=== PATIENT | female | born 1965 | race Caucasian/White ===

== ENCOUNTER 2016-12-11 08:46 | Outpatient (CLI) | payer OTHER ==
--- NOTE | 2016-12-11 09:48 | CT ---
CT CERVICAL SPINE WITHOUT CONTRAST: Date: 12/11/16 INDICATION: Neck pain after a fall. COMPARISON: None. FINDINGS: Craniocervical junction is normal appearing. There is a posterior midline fusion defect involving C1 . There is mild facet joint degenerative change at C2-3, C3-4, C4-5, C5-6, and C6-7. There are mild br oad based disc osteophyte complexes at C5-6 and C6-7. There is uncovertebral hypertrophy that is greater on the right at C5-6 causing mild right neural fo raminal narrowing. At C6-7, there is a broad based disc bulge with uncovertebral hypertrophy inducting moderate right a nd mild left neural foraminal narrowing. IMPRESSION: 1. No acute fracture or subluxation demonstrated. 2. Mild spondylosis of the cervical spine, most pronounced at C5-6 and C6-7. POS: [facility]
== END 2016-12-11 08:47 | disposition home or self-care (01) ==
LOC: CT 08:46
PROVIDERS: ATTEND Neurological Surgery
DX: M54.2 Cervicalgia (principal); M47.812 Spondylosis without myelopathy or radiculopathy, cervical region
CPT/HCPCS: 72125

== ENCOUNTER 2017-09-03 09:00 | Outpatient (CLI) | payer OTHER | END 2017-09-03 09:01 | disposition home or self-care (01) | LOC: BICMAMMO 09:00 | PROVIDERS: ATTEND Specialist | DX: Z12.31 Encounter for screening mammogram for malignant neoplasm of breast (principal) | CPT/HCPCS: 77063; 77067 ==

== ENCOUNTER 2018-01-01 10:53 | Outpatient (CLI) | payer OTHER ==
--- NOTE | 2018-01-01 12:39 | RAD ---
RIGHT SHOULDER THREE VIEWS: 01/01/2018 HISTORY: Right shoulder pain. Limited range of motion. COMPARISON: None. FINDINGS: There is no widening of the acromioclavicular or coracoclavicular interspace. There is no displaced fracture or evidence of dislocation seen. IMPRESSION: No acute osseous abnormality. POS: [facility]
== END 2018-01-01 10:54 | disposition home or self-care (01) ==
LOC: BICRAD 10:53
PROVIDERS: ATTEND Specialist
DX: M25.511 Pain in right shoulder (principal)

== ENCOUNTER 2018-08-13 10:54 | Outpatient (CLI) | payer OTHER ==
--- NOTE | 2018-08-13 11:17 | RAD ---
XR Hand Lt 3 View STANDARD HISTORY: Left hand pain COMPARISON: None. FINDINGS: Bony mineralization appears normal. Joint spaces are well preserved. I do not see any evide nce of any bony erosive change. Ulnar styloid is normal in appearance. IMPRESSION: Unremarkable left hand.
--- NOTE | 2018-08-13 11:18 | RAD ---
EXAM: 3 views of the left wrist HISTORY: Wrist pain COMPARISON: None FINDINGS: 3 views of the left wrist shows no evidence of acute fracture or dislocation. No soft tissu e swelling is seen. No degenerative changes are present. IMPRESSION: No evidence of acute osseous abnormality.
--- NOTE | 2018-08-13 11:18 | RAD ---
EXAM: 3 views of the right wrist HISTORY: Wrist pain COMPARISON: None FINDINGS: 3 views of the right wrist shows no evidence of acute fracture or dislocation. No soft tiss ue swelling is seen. No degenerative changes are present. IMPRESSION: No evidence of acute osseous abnormality.
--- NOTE | 2018-08-13 11:19 | RAD ---
XR Hand Rt 3 View STANDARD HISTORY: Right hand pain COMPARISON: None. FINDINGS: Bony mineralization is normal. There are some osteoarthritic changes of the PIP joints of t he index and middle fingers. No erosive bony change or other findings. IMPRESSION: Mild arthritic change. Changes mainly related to the PIP joints of the index and middle f wanda
== END 2018-08-13 10:55 | disposition home or self-care (01) ==
LOC: BICRAD 10:54
PROVIDERS: ATTEND Internal Medicine Rheumatology
DX: M25.541 Pain in joints of right hand (principal); M25.542 Pain in joints of left hand; M19.041 Primary osteoarthritis, right hand

== ENCOUNTER 2018-09-10 12:25 | Outpatient (CLI) | payer OTHER ==
--- NOTE | 2018-09-10 15:18 | MMO ---
Bilateral MAMMO Bilat Screen [id number]. CLINICAL HISTORY: Patient is 53 years old and is seen for screening. The patient has no family history of breast cancer. The patient has no personal history of cancer. VIEWS: The views performed were: bilateral craniocaudal with tomosynthesis and bilateral mediolateral oblique with tomosynthesis. FILMS COMPARED: The present examination has been compared to a prior imaging study performed at [facility] on 09/03/2017. MAMMOGRAM FINDINGS: There are scattered fibroglandular densities. Benign calcifications are noted bilaterally. There are no suspicious masses, suspicious calcifications, or new areas of architectural distortion. IMPRESSION: THERE IS NO MAMMOGRAPHIC EVIDENCE OF MALIGNANCY. A ROUTINE FOLLOW-UP MAMMOGRAM IN 1 YEAR IS RECOMMENDED. THE RESULTS OF THIS EXAM WERE SENT TO THE PATIENT. ACR BI-RADS Category 2 - Benign finding MAMMOGRAPHY NOTE: 1. A negative mammogram report should not delay a biopsy if a dominant of clinically suspicious mass is present. 2. Approximately 10% to 15% of breast cancers are not detected by mammography. 3. Adenosis and dense breasts may obscure an underlying neoplasm. Reported by: TALIB DE DIOS MD Electonically Signed: [id number]
== END 2018-09-10 12:26 | disposition home or self-care (01) ==
LOC: BICMAMMO 12:25
PROVIDERS: ATTEND Specialist
DX: Z12.31 Encounter for screening mammogram for malignant neoplasm of breast (principal)
CPT/HCPCS: 77063; 77067

== ENCOUNTER 2021-07-10 08:25 | Outpatient (CLI) | payer BC | END 2021-07-10 08:26 | disposition home or self-care (01) | LOC: BICMRI 08:25 | PROVIDERS: ATTEND Nurse Practitioner Family | DX: M54.2 Cervicalgia (principal); R25.2 Cramp and spasm; M50.30 Other cervical disc degeneration, unspecified cervical region | CPT/HCPCS: 72141 ==

== ENCOUNTER 2021-07-26 10:07 | Outpatient (CLI) | payer BC | END 2021-07-26 10:08 | disposition home or self-care (01) | LOC: BICMAMMO 10:07 | PROVIDERS: ATTEND Specialist | DX: Z12.31 Encounter for screening mammogram for malignant neoplasm of breast (principal); M81.0 Age-related osteoporosis without current pathological fracture | CPT/HCPCS: 77063; 77067; 77080 ==

== ENCOUNTER 2023-04-10 18:57 | Emergency (ER) | payer BC ==
[~2023-04-10 18:57] MED LIST: Iopamidol-370 76% 500 ML MDV (1 ML CHARGE) ONE
[2023-04-10 19:53] LABS: #Eosinphils 0.1 thou/uL (0.0-0.7); #Monocytes 0.8 thou/uL (0.11-0.59); %Basophils 0.2 % (0.0-1.0); %Eosinophils 1.2 % (0.0-10.0); %Lymphocytes 16.1 % (21.0-51.0); %Neutrophils 72.1 % (42.0-75.0); Hematocrit 40.3 % (36.0-47.0); Hemoglobin 13.8 g/dL (12.0-16.0); Mean Corpuscular HGB CONC 34.2 g/dL (32.0-36.0); Mean Corpuscular Hemoglobin 31.6 pg (27.0-31.0); Mean Corpuscular Volume 92.2 fl (78.0-98.0); Mean Platelet Volume 9.1 fL (7.4-10.4); Platelet Count 217 10x3/uL (130-400); RBC Distribution Width 11.5 % (11.5-14.5); Red Blood Cell (RBC) Count 4.37 mill/uL (4.20-5.40); White Blood Cell (WBC) Count 8.3 10x3/uL (4.8-10.8)
[2023-04-10 20:23] LABS: ALT (SGPT) 11 U/L (8-55); AST (SGOT) 10 U/L (5-34); Albumin 4.3 g/dL (3.5-5.0); Alkaline Phosphatase 40 U/L (40-110); Anion Gap 12 mmol/L (10-20); BUN (Urea Nitrogen) 12 mg/dL (9.8-20.1); Bilirubin, Total 0.3 mg/dL (0.2-1.2); Calc. Creatinine Clearance 0 mL/min (70-130); Calcium 9.8 mg/dL (7.8-10.44); Carbon Dioxide 27 mmol/L (22-29); Chloride 105 mmol/L (98-107); Estimated GFR 84; Globulin 2.6 g/dL (2.4-3.5); Glucose 103 mg/dL (70-105); Potassium 4.6 mmol/L (3.5-5.1); Protein, Total 6.9 g/dL (6.0-8.3); Sodium 139 mmol/L (136-145)
[2023-04-10 20:30] LABS: Troponin I Less than 0.010 ng/mL (< 0.028)
[2023-04-10] MEDS ORDERED: Morphine 4 MG/ML VIAL ONE (21:13)
[2023-04-10] MEDS ORDERED: Ondansetron PF 4 MG/2 ML Vial ONE (21:13)
[2023-04-10 21:36] LABS: SARS-CoV-2 NAA Rapid Test Not Detected (NotDetected)
[2023-04-10] MEDS ORDERED: Lidocaine 2% Viscous 10 mL, Alum & Magn 30 mL SSW SCH (21:45)
[2023-04-11 00:36] LABS: Bacteria/HPF None Seen HPF (None Seen); Bilirubin Negative (Negative); Blood, Urine Negative (Negative); CAUTI Indications for Culture Pelvic or flank pain; Clarity Clear (Clear); Glucose, Urine (Dipstick) Normal (Negative); Ketone, Urine Negative (Negative); Leukocyte Negative Leu/uL (Negative); Nitrite Negative (Negative); Protein, Urine (Dipstick) Negative (Neg-Trace); RBC/HPF 0-3 HPF (0-3); Specific Gravity, Urine 1.007 (1.002-1.036); Squamous Epithelial 0-3 HPF (0-3); Urobilinogen Normal mg/dL (Less than 2); WBC/HPF None Seen HPF (0-3)
[2023-04-11 00:42] LABS: Urine Culture Reflex No No
== END 2023-04-10 23:40 | disposition home or self-care (01) ==
LOC: ERS 18:57
DX: K59.00 Constipation, unspecified (principal); K21.9 Gastro-esophageal reflux disease without esophagitis; E03.9 Hypothyroidism, unspecified; Z79.899 Other long term (current) drug therapy
CPT/HCPCS: 36415; 71045; 74177; 80053; 81001; 84484; 85025; 85379; 93005; 96374; 96375; J2270; J2405; Q9967

== ENCOUNTER 2024-03-19 08:59 | Outpatient (CLI) | payer BC | END 2024-03-19 09:00 | disposition home or self-care (01) | LOC: BICRAD 08:59 | PROVIDERS: ATTEND Specialist | DX: M10.9 Gout, unspecified (principal); M79.89 Other specified soft tissue disorders ==